=== PATIENT | female | born 1965 | race Caucasian/White ===

== ENCOUNTER 2017-01-13 13:59 | Emergency (ER) | payer MEDICARE ==
--- NOTE | ~2017-01-13 | CR219 ---
[facility] A Service of [facility] RADIOLOGY TEXT RESULTS PATIENT: GENESIS SKY LOCATION: SED : 61 UNIT #: [id number] AGE: [address]: Ami Pavon APRN SEX: F ORDER DR: [id number] [place] [id number] E MR#: [id number] Acc #: [id number] NAME: GENESIS SKY : 1965 SEX: F STUDY DATE/TIME: 01/13/2017 14:49 UNIT: SED ROOM: STUDY DESCRIPTION: CR Sacrum and Coccyx Min 2 Vie Attending Physician: Ami Pavon A.P.R.N. Ordering Physician: Ami Pavon A.P.R.N. Primary Care Physician: Rosaura Hernandez Aprn MEDICAL IMAGING REPORT This report is preliminary unless electronic signature is present. EXAM Sacrum and coccyx INDICATION Low back pain and sacral pain after a fall this morning. FINDINGS AP and lateral views of the sacrum were obtained. No fracture is identified. The bone appears normal. IMPRESSION Normal sacrum. Dictated by... Jimenez Rasmussen M.D. THIS IS AN ELECTRONICALLY VERIFIED REPORT Jimenez Rasmussen M.D. at 01/14/2017 6:08 AM Booker TD: 01/13/2017 17:44 JOB #: [id number] MEDICAL IMAGING REPORT Page 1 of 1
--- NOTE | ~2017-01-13 | CR181 ---
[facility] A Service of [facility] & [facility] RADIOLOGY TEXT RESULTS PATIENT: GENESIS SKY LOCATION: SED : 61 UNIT #: [id number] AGE: [address]: Ami Pavon APRN SEX: F ORDER DR: [id number] [place] [id number] E MR#: [id number] Acc #: [id number] NAME: GENESIS SKY : 1965 SEX: F STUDY DATE/TIME: 01/13/2017 14:49 UNIT: SED ROOM: STUDY DESCRIPTION: CR Lumbar Spine 2 or 3 Views Attending Physician: Ami Pavon A.P.R.N. Ordering Physician: Ami Pavon A.P.R.N. Primary Care Physician: Rosaura Hernandez Aprn MEDICAL IMAGING REPORT This report is preliminary unless electronic signature is present. EXAM Lumbosacral spine total of 3 views HISTORY Low back pain after a fall this morning. FINDINGS 3 views are submitted. Spinal alignment is normal. Disc space and vertebral body height is maintained. There is evidence of facet disease and there is evidence of diffuse marginal spur formation. No fractures are identified. CONCLUSION Lumbar spondylosis. Facet disease. No acute findings or fractures. Dictated by... Christopher Quinn M.D. THIS IS AN ELECTRONICALLY VERIFIED REPORT Christopher Quinn M.D. at 01/15/2017 7:19 AM EDIN/hannah TD: 01/13/2017 18:15 JOB #: [id number] MEDICAL IMAGING REPORT Page 1 of 1
[~2017-01-13 13:59] MED LIST: ACETAMINOPHEN; ARIPIPRAZOLE5 MG PO; BACLOFEN10 MG PO; CEFTRIAXON2 G/PIGGYB IV; CITALOPRAM HBR40 MG PO; FLAGYL PO; FLEXERIL; FLONASE 0.05% N16 G1; FLORASTOR250 M1 PO; IBUPROFEN100 MG PO; LEVOTHYROXINE50 MCG PO; LEVOTHYROXINE75 MCG PO; MELATONIN3 M4 PO; RITE-AID PHARMACY; SIMVASTATIN20 MG PO; SYNTHROID
== END 2017-01-13 17:11 | disposition home or self-care (01) ==
LOC: SED 13:59
DX: S33.9XXA Sprain of unspecified parts of lumbar spine and pelvis, initial encounter (principal); Z88.2 Allergy status to sulfonamides; Z88.5 Allergy status to narcotic agent; Z88.1 Allergy status to other antibiotic agents; Z79.899 Other long term (current) drug therapy; W01.0XXA Fall on same level from slipping, tripping and stumbling without subsequent striking against object, initial encounter
CPT/HCPCS: 72100; 72220; 99284